=== PATIENT | female | born 1945 | race Caucasian/White ===

== ENCOUNTER → 2017-03-12 | Outpatient (CLI) | payer MEDICARE, OTHER ==
[~2017-03-12] MED LIST: ASPIRIN (CHILDR81 MG PO; IMODIUM2 MG PO; KLONOPIN0.5 MG PO; LANTUS (IN100 UNIT/M SUB-Q; LASIX20 MG PO; LEVOTHROID (SY50 MCG PO; LOVASTATIN40 MG PO; LYRICA 75MG CAP75 MG PO; NEURONTIN300 MG PO; NORCO 10-325 T1 EACH PO; OXYCONTIN15 MG PO; PRILOSEC20 MG PO; PRINIVIL OR ZES10 MG PO; PROAIR HFA8.5 GM INH; SOMA350 MG PO; VALIUM5 MG PO; XALATAN2.5 ML OPHTH; ZOLOFT50 MG PO
== END | disposition disaster alternative care site (69) ==
LOC: GRAD 11:50
DX: R93.8 Abnormal findings on diagnostic imaging of other specified body structures (principal); R05 Cough; R91.8 Other nonspecific abnormal finding of lung field; I70.90 Unspecified atherosclerosis

== ENCOUNTER → 2017-04-06 | Outpatient (CLI) | payer MEDICARE, OTHER | END | disposition disaster alternative care site (69) | LOC: LGSMG 14:48 | DX: J32.9 Chronic sinusitis, unspecified (principal); R05 Cough ==

== ENCOUNTER → 2017-04-14 | Outpatient (CLI) | payer MEDICARE, OTHER | END | disposition disaster alternative care site (69) | LOC: LGSMG 11:10 | DX: J20.9 Acute bronchitis, unspecified (principal) ==

== ENCOUNTER → 2017-06-24 | Outpatient (CLI) | payer MEDICARE, OTHER | END | disposition disaster alternative care site (69) | LOC: GNUT 12:38 | DX: E11.65 Type 2 diabetes mellitus with hyperglycemia (principal); E11.29 Type 2 diabetes mellitus with other diabetic kidney complication ==

== ENCOUNTER → 2017-07-22 | Outpatient (CLI) | payer MEDICARE, OTHER | END | disposition disaster alternative care site (69) | LOC: GDIC 06-30 08:13 | DX: E11.65 Type 2 diabetes mellitus with hyperglycemia (principal); E11.40 Type 2 diabetes mellitus with diabetic neuropathy, unspecified; E11.29 Type 2 diabetes mellitus with other diabetic kidney complication | CPT/HCPCS: G0108 ==